=== PATIENT | female | born 1990 | race Caucasian/White ===

== ENCOUNTER 2017-07-16 01:36 | Emergency (ER) | payer OTHER ==
[~2017-07-16] VITALS: Ht 167.6 cm; Wt 69.3 kg
[2017-07-16 01:38] VITALS: BP 150/104
== END 2017-07-16 02:36 | disposition home or self-care (01) ==
LOC: ED 02:30
DX: Z77.21 Contact with and (suspected) exposure to potentially hazardous body fluids (principal)
CPT/HCPCS: 99281